=== PATIENT | female | born 1965 | race Caucasian/White ===

== ENCOUNTER → 2016-07-29 | Outpatient (CLI) | payer BC ==
[~2016-07-29] MED LIST: ASPI325T45 PO; CETI10TA84 PO; DSY50 PO; EFF/375 PO; EFFSR75 PO; FLUT0.0529 INH; VENL100T2 PO
== END | disposition home or self-care (01) ==
LOC: C.PATHSPEC 17:31
PROVIDERS: ATTEND Obstetrics & Gynecology
DX: N95.0 Postmenopausal bleeding (principal)

== ENCOUNTER → 2016-10-02 | Outpatient (CLI) | payer BC ==
[~2016-10-02] MED LIST changes: +TRAZ50TA35 PO
--- NOTE | 2016-10-05 12:45 | MAMMOGRAPHY REPORT ---
BILATERAL DIGITAL SCREENING MAMMOGRAM TOMOSYNTHESIS WITH CAD: 10/02/2016 CLINICAL HISTORY: Routine screening. Patient has no complaints. TECHNIQUE: Breast tomosynthesis in addition to standard 2D mammography was performed. Current study was also evaluated with a Computer Aided Detection (CAD) system. COMPARISON: Comparison is made to exams dated: 10/11/2015 ultrasound, 10/11/2015 mammogram, 10/01/2015 mammogram, 09/26/2014 mammogram, 05/29/2013 mammogram, and 05/25/2012 mammogram - [facility]. BREAST COMPOSITION: There are scattered areas of fibroglandular density in both breasts. FINDINGS: No suspicious masses, calcifications, or areas of architectural distortion are noted in e ither breast. There has been no significant interval change compared to prior exams. A linear scar marker denotes a scar on the right lateral breast. Benign-appearing right breast calcifications are stable compared to prior exams. IMPRESSION: ACR BI-RADS CATEGORY 2: BENIGN There is no mammographic evidence of malignancy. A 1 year screening mammogram is recommended. The p atient will receive written notification of the results. Approximately 10% of breast cancers are not detected with mammography. A negative mammographic repor t should not delay biopsy if a clinically suggestive mass is present. Radha Torres M.D. ah/:10/02/2016 16:40:21 Medical Billing Instructor: Filiberto TORRES(Dulce)(M), [facility] letter sent: Normal 1/2 BI-RADS Code: ACR BI-RADS Category 2: Benign
== END | disposition home or self-care (01) ==
LOC: C.MAMM 15:42
PROVIDERS: ATTEND Obstetrics & Gynecology
DX: Z12.31 Encounter for screening mammogram for malignant neoplasm of breast (principal)

== ENCOUNTER → 2017-03-23 | Outpatient (CLI) | payer BC ==
[~2017-03-23] MED LIST changes: -TRAZ50TA35 PO
--- NOTE | 2017-03-23 17:11 | DIAGNOSTIC IMAGING REPORT ---
L FOOT MIN 3 VIEWS ROUTINE CLINICAL HISTORY: 51 years-old Female presenting with PAIN IN LEFT FOOT. TECHNIQUE: Frontal, oblique, and lateral views of the left foot were obtained. COMPARISON: 01/31/2010. FINDINGS: No acute fracture or malalignment. No degenerative change. No radiopaque foreign body. No radiographic evidence of soft tissue swelling. IMPRESSION: No acute osseous injury of the left foot. Electronically signed by: Smith Barreto M.D. 03/23/2017 5:10 PM Dictated Date/Time: 03/23/2017 5:08 PM
== END | disposition home or self-care (01) ==
LOC: C.RAD1850 16:46
PROVIDERS: ATTEND Nurse Practitioner Family
DX: M79.672 Pain in left foot (principal)

== ENCOUNTER → 2017-05-14 | Outpatient (CLI) | payer BC ==
[~2017-05-14] MED LIST changes: -ASPI325T45 PO; -CETI10TA84 PO; -DSY50 PO; -EFF/375 PO; -EFFSR75 PO; -FLUT0.0529 INH; +TRAZ50TA35 PO; -VENL100T2 PO
--- NOTE | 2017-05-14 09:29 | DIAGNOSTIC IMAGING REPORT ---
L ANKLE MIN 3 VIEWS ROUTINE HISTORY: 51 years-old Female PAIN IN L ANKLE AND JOINTS OF L FOOT acute left-sided ankle pain COMPARISON: Left foot radiographs 03/23/2017 TECHNIQUE: 3 views of the left ankle FINDINGS: There is mild soft tissue swelling about the ankle. No osteochondral defect of the talar dome. Minimal marginal spurring of the midfoot articulations. There is no acute fracture or dislocation. No opaque foreign body. IMPRESSION: Mild soft tissue swelling without acute fracture or dislocation identified. The above report was generated using voice recognition software. It may contain grammatical, syntax or spelling errors. Electronically signed by: Fred Quijano M.D. 05/14/2017 9:27 AM Dictated Date/Time: 05/14/2017 9:26 AM
== END | disposition home or self-care (01) ==
LOC: C.LAB1850 09:09
PROVIDERS: ATTEND Nurse Practitioner Family
DX: M25.572 Pain in left ankle and joints of left foot (principal)

== ENCOUNTER → 2017-10-04 | Outpatient (CLI) | payer OTHER ==
--- NOTE | 2017-10-05 07:41 | MAMMOGRAPHY REPORT ---
BILATERAL DIGITAL SCREENING MAMMOGRAM TOMOSYNTHESIS WITH CAD: 10/04/2017 CLINICAL HISTORY: Routine screening. Patient has no complaints. TECHNIQUE: Breast tomosynthesis in addition to standard 2D mammography was performed. Current study was also evaluated with a Computer Aided Detection (CAD) system. COMPARISON: Comparison is made to exams dated: 10/02/2016 mammogram, 10/01/2015 mammogram, 09/26/2014 mamm ogram, 05/29/2013 mammogram, 05/25/2012 mammogram, and 05/14/2009 mammogram - [facility]. BREAST COMPOSITION: There are scattered areas of fibroglandular density in both breasts. FINDINGS: A linear scar marker overlies the lower outer right breast. There are stable intramammary lymph nodes in each upper outer quadrant. No suspicious mass, architectural distortion or cluster of microcalcifications is seen. IMPRESSION: ACR BI-RADS CATEGORY 1: NEGATIVE There is no mammographic evidence of malignancy. A 1 year screening mammogram is recommended. The pa tient will receive written notification of the results. Approximately 10% of breast cancers are not detected with mammography. A negative mammographic report should not delay biopsy if a clinically suggestive mass is present. Katelyn Hanna M.D. ay/:10/04/2017 15:34:21 Blasting Contract Man: Park OTOOLE)(Bob), [facility] letter sent: Normal 1/2 BI-RADS Code: ACR BI-RADS Category 1: Negative
== END | disposition home or self-care (01) ==
LOC: C.MAMM 14:48
PROVIDERS: ATTEND Obstetrics & Gynecology
DX: Z12.31 Encounter for screening mammogram for malignant neoplasm of breast (principal)

== ENCOUNTER → 2018-01-13 | Outpatient (CLI) | payer OTHER ==
--- NOTE | 2018-01-13 16:55 | DIAGNOSTIC IMAGING REPORT ---
RIBS UNILATERAL WITH PA CHEST CLINICAL HISTORY: HEIMLICH GIVEN, PAIN, SOB dyspnea COMPARISON STUDY: None FINDINGS: Normal chest. No evidence pneumothorax. Lungs are clear. Left ribs show a nondisplaced cortical fracture anterior aspect left ninth rib. All remaining ribs are unremarkable. IMPRESSION: Nondisplaced cortical fracture anterior left ninth rib. Otherwise negative study. No evidence for pneumothorax. The above report was generated using voice recognition software. It may contain grammatical, syntax or spelling errors. Electronically signed by: Gray Medrano M.D. 01/13/2018 4:54 PM Dictated Date/Time: 01/13/2018 4:52 PM
== END | disposition home or self-care (01) ==
LOC: C.RAD1850 16:38
PROVIDERS: ATTEND Nurse Practitioner Family
DX: S22.32XA Fracture of one rib, left side, initial encounter for closed fracture (principal); X58.XXXA Exposure to other specified factors, initial encounter

== ENCOUNTER → 2018-02-16 | Outpatient (CLI) | payer OTHER ==
--- NOTE | 2018-02-17 15:07 | MAMMOGRAPHY REPORT ---
UNILATERAL LEFT DIGITAL DIAGNOSTIC MAMMOGRAM TOMOSYNTHESIS WITH CAD AND TARGETED LEFT ULTRASOUND: 01/27 CLINICAL HISTORY: The patient reports a palpable left breast lump for approximately 1 week. TECHNIQUE: Breast tomosynthesis in addition to standard 2D mammography was performed. Current study w as also evaluated with a Computer Aided Detection (CAD) system. Left CC and MLO 2D and tomosynthesis images were obtained. COMPARISON: Comparison is made to exams dated: 10/04/2017 mammogram, 10/02/2016 mammogram, 10/11/2015 renay mogram, 10/01/2015 mammogram, 10/11/2015 ultrasound, and 09/26/2014 mammogram - [facility]. BREAST COMPOSITION: There are scattered areas of fibroglandular density in left breast. FINDINGS: A triangle marker monk the site of the palpable lump pointed out by the patient in the left superior breast at approximately 12:00. No suspicious masses or other suspicious mammographic abnormalities are noted in the region of the triangle marker. The remainder of the left breast is stable mammograp hically compared to prior exams, without suspicious masses, calcifications, or areas of architectural distortion noted. A morphologically normal intramammary lymph node in the left upper outer quadrant is stable compared to prior exams. Targeted ultrasound was performed of the area of the palpable lump pointed out by the patient, in the left breast at approximately 12:00, 9 cm from the nipple. Sonographically normal tissue is seen in this region, without evidence of a mass or other suspicious sonographic normality. IMPRESSION: ACR BI-RADS CATEGORY 2: BENIGN, ULTRASOUND ACR BI-RADS CATEGORY 2: BENIGN No suspicious mammographic or sonographic abnormality at the site of the palpable left breast lump po inted out by the patient. There is no mammographic or sonographic evidence of malignancy. Recommend clinical follow-up for the palpable left breast lump; any decision to biopsy should be based on clin ical grounds. Also recommend routine bilateral screening mammograms which are due September 2018. The patient has been verbally notified of the results. Some breast cancers are not detected with mammography. A negative mammographic report should not monique y biopsy if a clinically suggestive mass is present. Radha Torres M.D. ah/:02/16/2018 14:09:30 Film Masker: RT Maikel(Dulce)(M), [facility] letter sent: Normal 06/29 OVERALL STUDY BIRADS: 2 Benign
== END | disposition home or self-care (01) ==
LOC: C.MAMM 13:41
PROVIDERS: ATTEND Nurse Practitioner Family
DX: N63.20 Unspecified lump in the left breast, unspecified quadrant (principal)